=== PATIENT | male | born 1950 | race Caucasian/White ===

== ENCOUNTER 2021-05-02 07:25 | Outpatient (CLI) | payer OTHER | END 2021-05-02 07:32 | disposition home or self-care (01) | LOC: SONOGRAMA 07:25 | PROVIDERS: ATTEND Internal Medicine | DX: K74.69 Other cirrhosis of liver (principal); C22.0 Liver cell carcinoma ==

== ENCOUNTER 2021-07-03 07:25 | Outpatient (CLI) | payer OTHER | END 2021-07-03 07:42 | disposition home or self-care (01) | LOC: RAD 07:25 | PROVIDERS: ATTEND Internal Medicine | DX: M25.512 Pain in left shoulder (principal) ==

== ENCOUNTER 2022-08-07 09:01 | Emergency (ER) | payer OTHER ==
[~2022-08-07] VITALS: Ht 177.8 cm; Wt 95.3 kg
[2022-08-07] MEDS ORDERED: LANTUS SOL100 UNIT/1 SQ (09:19)
== END 2022-08-07 15:54 | disposition home or self-care (01) ==
LOC: ER 09:01
DX: L03.011 Cellulitis of right finger (principal); E11.9 Type 2 diabetes mellitus without complications; Z79.4 Long term (current) use of insulin